=== PATIENT | female | born 1975 | race Caucasian/White ===

== ENCOUNTER 2023-12-28 17:13 | Emergency (ER) | payer OTHER, SELFPAY ==
[2023-12-28 17:16] VITALS: BP 127/85; PULSE 96; RESP 16; TEMP 37.1; O2SAT 96; BMI 39.5
--- NOTE | 2023-12-28 17:30 | CT_ITS ---
[address] [address] Patient Name: SUSY HOYT MRN: [id number] date: 1975 Sex: F Assigned Patient Location: ER Current Patient Location: Accession/Order Number: [id number] Exam Date: 12/28/2023 17:53 Report Date: 12/28/2023 18:26 At the request of: LAURY WEEKS Procedure: CT abdomen pelvis w con EXAM: CT abdomen pelvis w con; [id number] REASON FOR EXAM: mid, low abd pain r/o diverticulitis TECHNIQUE: Helical CT images of the abdomen and pelvis were obtained after the administration of IV contrast. Multiplanar reformats were generated at the scanner. Dose reduction technique used: Automated exposure control and/or adjustment of the mA and/or kV according to patient size and/or use of iterative reconstruction technique. COMPARISON: None. FINDINGS: Visualized Chest: No pleural effusion or any significant pulmonary findings. Abdomen: Liver: Within normal limits. Gallbladder: Cholelithiasis without evidence of acute cholecystitis. Bile Ducts: No significant biliary ductal dilatation. Pancreas: No mass, ductal dilatation, or inflammatory changes. Spleen: No splenomegaly or focal lesion. Adrenals: No nodules. Kidneys: -No stones or hydronephrosis. -No mass. Vascular: No aortic aneurysm. Lymph Nodes: No adenopathy. Abdominal Wall: Small fat-containing umbilical hernia. Pelvis: An IUD is present in the uterus. Bowel/Peritoneal Cavity/Mesentery: -Short segment of colonic wall thickening and moderate pericolonic fat stranding in an area of moderate diverticulosis located in the mid sigmoid colon (for example series 3 image 108). No evidence of abscess or gross perforation. -No bowel obstruction. -No acute inflammatory changes. -No free air or free fluid. Musculoskeletal: No acute fracture or suspicious osseous lesion. CT/CT abdomen pelvis w con IMPRESSION: 1. Moderate acute uncomplicated diverticulitis of the mid sigmoid colon. 2. Cholelithiasis without evidence of acute cholecystitis. Electronically authenticated by: YU COCHRAN Date: 12/28/2023 18:26
--- NOTE | 2023-12-28 17:32 | ED.ABDPAIN1 ---
HPI - Abdominal Pain General Chief Complaint: Abdominal Pain Stated Complaint: ABDOMINAL PAIN Time Seen by Provider: 12/28/23 17:24 Source: patient Mode of arrival: walk-in History of Present Illness HPI narrative: 48-year-old female presents to the emergency department complaining of abdominal pain. Locates the mid, lower abdominal region, described as cramping. Pain has been waxing and waning since onset this morning. Pain was worse when hitting bumps while driving here. Currently, patient states that the pain has improved. Denies fever, chills, nausea, vomiting, diarrhea, prior abdominal surgeries. Quality:?as above Severity:?moderate Timing:?as above Context: Normal setting and activity? Modifying factors:?as above Associated symptoms: none Related Data Home Medications Medication Instructions Recorded Confirmed aripiprazole 10 mg tablet (Abilify) 15 mg PO DAILY 12/28/23 12/28/23 buspirone 10 mg tablet 5 mg PO BID 12/28/23 12/28/23 clonazepam 0.5 mg tablet 0.25 mg PO DAILY PRN anxiety 12/28/23 12/28/23 famotidine 20 mg tablet (Pepcid) 20 mg PO DAILY 12/28/23 12/28/23 hydroxychloroquine 100 mg tablet 100 mg PO BID 12/28/23 12/28/23 metformin 500 mg 24 hr 500 mg PO DAILY 12/28/23 12/28/23 tablet,extended release (gastric retention) (Glumetza) paliperidone 9 mg tablet,extended 9 mg PO DAILY 12/28/23 12/28/23 release 24 hr (Invega) Previous Rx's Medication Instructions Recorded cefdinir 300 mg capsule 300 mg PO BID 7 days #14 caps 12/28/23 metronidazole 500 mg tablet 500 mg PO TID 7 days #21 tabs 12/28/23 Allergies Allergy/AdvReac Type Severity Reaction Status Date / Time No Known Drug Allergies Allergy Verified 12/28/23 17:20 Review of Systems ROS Narrative CONST: Denies any fever, chills RESP: Denies any cough, shortness of breath CV: Denies any chest pain, peripheral edema GI: +abd pain.? Denies any nausea, vomiting, diarrhea : Denies any flank pain, dysuria, frequency, hematuria MS: Denies any back pain, myalgias SKIN: felt hot, clammy earlier PFSH PFSH Medical History Schizoaffective disorder ?F25.9 - Schizoaffective disorder, unspecified (ICD-10) Diabetes ?E11.9 - Type 2 diabetes mellitus without complications (ICD-10) Depression ?F32.A - Depression, unspecified (ICD-10) Anxiety ?F41.9 - Anxiety disorder, unspecified (ICD-10) Exam Narrative Exam Narrative: Vital signs reviewed Nurses notes noted CONST: Nontoxic, well appearing, well nourished, in no distress.? No diaphoresis.?? HENT: normocephalic, atraumatic, moist mucous membrane, no abnormalities of the nose noted, hearing normal EYES: normal appearing conjunctiva, no apparent discharge bilat NECK: normal appearance CV: normal rate, regular rhythm, no murmur RESP: normal effort, speaking in complete sentences. Lung sounds clear and equal bilat.? No wheezes, rales, rhonchi GI: normal bowel sounds, soft, no distension, + diffuse tenderness across the lower abd without rebound or guarding : no CVA tenderness MS: no edema, tenderness SKIN: no pallor NEURO: A&Ox 3, no focal findings PSYCH: normal mood, affect Constitutional Vital Signs, click to edit/add: Last Vital Signs Temp 98.7 F 12/28/23 17:16 Pulse 96 H 12/28/23 17:16 Resp 16 12/28/23 17:16 BP 127/85 12/28/23 17:16 Pulse Ox 96 12/28/23 17:16 O2 Del Method Room Air 12/28/23 17:16 Course Vital Signs Vital signs: Vital Signs Temperature 98.7 F 12/28/23 17:16 Pulse Rate 96 H 12/28/23 17:16 Respiratory Rate 16 12/28/23 17:16 Blood Pressure 127/85 12/28/23 17:16 Pulse Oximetry 96 12/28/23 17:16 Oxygen Delivery Method Room Air 12/28/23 17:16 Temperature 98.7 F 12/28/23 17:16 Pulse Rate 96 H 12/28/23 17:16 Respiratory Rate 16 12/28/23 17:16 Blood Pressure 127/85 12/28/23 17:16 Pulse Oximetry 96 12/28/23 17:16 Oxygen Delivery Method Room Air 12/28/23 17:16 MDM - Abdominal Pain MDM Narrative Medical decision making narrative: This is a pleasant 48-year-old female presented to emergency department with complaint of lower abdominal pain. Onset this morning. Pain has waxed and waned throughout the course the day. Improves with rest, worsens with movement. Denies any fever, chills, nausea, vomiting, diarrhea, prior abdominal surgeries. On arrival, afebrile, vital signs are stable. On exam, nontoxic, well-appearing patient in no apparent distress. Heart regular rate and rhythm. Lung sounds are clear and equal bilaterally. Abdomen is soft with some tenderness mildly, diffusely across the lower abdominal region without rebound or guarding. No CVA tenderness. Labs reveal no leukocytosis, anemia, electrolyte imbalance, renal impairment. Urinalysis unremarkable. Parents test was negative. CT abdomen and pelvis imaging, per radiologist reveals uncomplicated diverticulitis. Diverticulitis more likely a source of patient's abdominal pain based on history, physical and imaging. Appendicitis less likely based on imaging Urinary tract infection less likely based on urinalysis. During Emergency Department course, patient was hydrated. She declined any pain medications. After CT results, she was given dose of cefdinir and Flagyl. Disposition ? The patient was discharged. Plan: Patient will be discharged to home. Condition at time of disposition: stable ?Prescription for Ceftin ear and Flagyl sent to her pharmacy. Advised to follow up with referral provider, phone number to call for appointment placed on discharge instructions. Advised to return for any worsening and/or development of new, concerning signs or symptoms Lab Data Attestation: I reviewed the patient's lab results. Labs: Lab Results 12/28/23 12/28/23 Range/Units 17:40 18:16 WBC 10.0 (4.0-11.0) 10^3/uL RBC 4.86 (4.20-5.40) 10^6/uL Hgb 14.0 (12.0-16.0) g/dL Hct 43.0 (36.0-48.0) % MCV 88.5 (81.0-99.0) fL MCH 28.8 (26.7-34.0) pg MCHC 32.6 (29.9-35.2) g/dL RDW 12.9 (11.0-15.0) % Plt Count 272 (150-450) 10^3/uL MPV 9.6 (9.5-13.5) fL Neut % (Auto) 74.1 (43.0-75.0) % Lymph % (Auto) 19.5 L (20.5-60.0) % [place] % (Auto) 4.9 (1.7-12.0) % Eos % (Auto) 1.1 (0.9-7.0) % Baso % (Auto) 0.2 (0.2-2.0) % Neut # (Auto) 7.4 H (1.4-6.5) 10^3/uL Lymph # (Auto) 1.9 (1.2-3.8) 10^3/uL [place] # (Auto) 0.5 (0.3-0.8) 10^3/uL Eos # (Auto) 0.1 (0.0-0.7) 10^3/uL Baso # (Auto) 0.0 (0.0-0.1) 10^3/uL Abs Immat Gran (auto) 0.02 (0.00-0.03) 10^3/uL Imm/Tot Granulo (auto) 0.2 (0.0-0.5) % Sodium 139 (136-145) mmol/L Potassium 3.8 (3.5-5.1) mmol/L Chloride 103 (98-107) mmol/L Carbon Dioxide 27.6 (21.0-32.0) mmol/L Anion Gap 12.2 BUN 11.0 (7.0-18.0) mg/dL Creatinine 0.84 (0.55-1.02) mg/dL Est GFR ( Amer) >60 (>=60) Est GFR (Non-Af Amer) >60 (>=60) BUN/Creatinine Ratio 13.1 Glucose 101 (74-106) mg/dL Calcium 8.9 (8.5-10.1) mg/dL Total Bilirubin 0.4 (0.2-1.0) mg/dL AST 16 (15-37) U/L ALT 30 (14-59) U/L Alkaline Phosphatase 97 (46-116) U/L Total Protein 7.9 (6.4-8.2) g/dL Albumin 3.7 (3.4-5.0) g/dL Globulin 4.2 g/dL Albumin/Globulin Ratio 0.9 Lipase 34.0 (16.0-77.0) U/L Serum HCG, Qual Negative (NEGATIVE) Urine Color Lt. yellow (YELLOW) Urine Clarity Clear (CLEAR) Urine pH 5.5 (5.0-9.0) Ur Specific [place] 1.025 (1.005-1.025) Urine Protein Negative (NEG/TRACE) mg/dL Urine Glucose (UA) Negative (NEGATIVE) mg/dL Urine Ketones Negative (NEGATIVE) mg/dL Urine Occult Blood Trace-i (NEGATIVE) Urine Nitrite Negative (NEGATIVE) Urine Bilirubin Negative (NEGATIVE) Urine Urobilinogen 0.2 (0.2-1.0) EU/dL Ur Leukocyte Esterase Negative (NEGATIVE) Imaging Data CT scan - abdomen: Radiologist's impression: ITS Impressions Abdomen/Pelvis CT 12/28/23 17:30 IMPRESSION: 1. Moderate acute uncomplicated diverticulitis of the mid sigmoid colon. 2. Cholelithiasis without evidence of acute cholecystitis. Electronically authenticated by: YU COCHRAN Date: 12/28/2023 18:26 Discharge Plan Discharge Chief Complaint: Abdominal Pain Clinical Impression: Diverticulitis Abdominal pain Qualifiers: Abdominal location: lower abdomen, unspecified Qualified Code(s): R10.30 - Lower abdominal pain, unspecified Patient Disposition: Home, Self-Care Time of Disposition Decision: 18:42 Condition: Good Prescriptions / Home Meds: New cefdinir 300 mg capsule 300 mg PO BID 7 Days Qty: 14 0RF metronidazole 500 mg tablet 500 mg PO TID 7 Days Qty: 21 0RF No Action aripiprazole [Abilify] 10 mg tablet 15 mg PO DAILY paliperidone [Invega] 9 mg tablet extended release 24hr 9 mg PO DAILY metformin [Glumetza] 500 mg tablet,ER yaakov.retention 24 hr 500 mg PO DAILY famotidine [Pepcid] 20 mg tablet 20 mg PO DAILY clonazepam 0.5 mg tablet 0.25 mg PO DAILY PRN (Reason: anxiety) buspirone 10 mg tablet 5 mg PO BID hydroxychloroquine 100 mg tablet 100 mg PO BID Instructions: Diverticulitis (ED) Stand Alone Forms: Portal Instructions Referrals: Heidi,Carla, [facility]IGGER [Primary Care Provider] - 1 week
[2023-12-28 17:49] LABS: Basophils Percent Auto 0.2 % (0.2-2.0); Eosinophils Absolute Auto 0.1 10^3/uL (0.0-0.7); Eosinophils Percent Auto 1.1 % (0.9-7.0); Immature Granulocytes Abs Auto 0.02 10^3/uL (0.00-0.03); Immature Granulocytes Pct Auto 0.2 % (0.0-0.5); Lymphocytes Absolute Auto 1.9 10^3/uL (1.2-3.8); Lymphocytes Percent Auto 19.5 % (20.5-60.0); Mean Corpuscular HGB Conc 32.6 g/dL (29.9-35.2); Mean Corpuscular Hemoglobin 28.8 pg (26.7-34.0); Mean Corpuscular Volume 88.5 fL (81.0-99.0); Mean Platelet Volume 9.6 fL (9.5-13.5); Monocytes Absolute Auto 0.5 10^3/uL (0.3-0.8); Monocytes Percent Auto 4.9 % (1.7-12.0); Neutrophils Absolute Auto 7.4 10^3/uL (1.4-6.5); Neutrophils Percent Auto 74.1 % (43.0-75.0); Platelet Count 272 10^3/uL (150-450); Red Blood Count 4.86 10^6/uL (4.20-5.40); Red Cell Distribution Width 12.9 % (11.0-15.0)
[2023-12-28 18:05] LABS: HCG Qualitative NEGATIVE (NEGATIVE)
[2023-12-28 18:10] LABS: Alanine Aminotransferase 30 U/L (14-59); Albumin Globulin Ratio 0.9; Albumin Level 3.7 g/dL (3.4-5.0); Alkaline Phosphatase 97 U/L (46-116); Anion Gap 12.2; Aspartate Amino Transferase 16 U/L (15-37); BUN Creatinine Ratio 13.1; Bilirubin Total 0.4 mg/dL (0.2-1.0); Calcium 8.9 mg/dL (8.5-10.1); Carbon Dioxide 27.6 mmol/L (21.0-32.0); Chloride 103 mmol/L (98-107); Estimated GFR (African America >60 (>=60); Estimated GFR (Non-African Ame >60 (>=60); Globulin 4.2 g/dL; Glucose 101 mg/dL (74-106); Potassium 3.8 mmol/L (3.5-5.1); Sodium 139 mmol/L (136-145); Total Protein 7.9 g/dL (6.4-8.2)
[2023-12-28] MEDS: 0.9 % SODIUM CHLORIDE 1,000 ML 999 ML IV (18:11)
[2023-12-28 18:32] LABS: Bilirubin Urine NEGATIVE (NEGATIVE); Blood Urine TRACE-I (NEGATIVE); Clarity Urine CLEAR (CLEAR); Color Urine LT. YELLOW (YELLOW); Glucose Urine UA NEGATIVE (NEGATIVE); Ketones Urine NEGATIVE (NEGATIVE); Leukocyte Esterase Urine NEGATIVE (NEGATIVE); Nitrite Urine NEGATIVE (NEGATIVE); Protein Urine NEGATIVE (NEG/TRACE); Specific Gravity Urine 1.025 (1.005-1.025); Urobilinogen Urine 0.2 EU/dL (0.2-1.0); pH Urine 5.5 (5.0-9.0)
[2023-12-28 18:33] LABS: Urine Microscopic Indicated YES
[2023-12-28] MEDS: METRONIDAZOLE 250 MG TABLET 500 MG PO (18:43)
[2023-12-28] MEDS: CEFDINIR 300 MG CAPSULE PO (18:43)
[2023-12-28 18:52] LABS: Bacteria Urine TRACE #/HPF (NONE SEEN); Cast Seen? NONE SEEN #/LPF (NONE SEEN); Crystals Seen? None Seen #/HPF (None Seen); Mucus Urine TRACE (NONE SEEN); Squamous Epithelial Cell Urine FEW #/LPF (NONE/RARE)
[2023-12-28 18:53] LABS: Urine Culture Indicated NO
== END 2023-12-28 18:54 | disposition home or self-care (01) ==
PROVIDERS: Physician Assistant; Emergency Provider Emergency Medicine; PCP Nurse Practitioner
DX: K57.32 Diverticulitis of large intestine without perforation or abscess without bleeding (principal); F25.9 Schizoaffective disorder, unspecified; E11.9 Type 2 diabetes mellitus without complications; F32.A Depression, unspecified; F41.9 Anxiety disorder, unspecified; Z79.84 Long term (current) use of oral hypoglycemic drugs; Z79.899 Other long term (current) drug therapy
CPT/HCPCS: 36415; 74177; 80053; 81001; 83690; 84703; 85025; 99285; Q9967